=== PATIENT | female | born 1980 | race Caucasian/White ===

== ENCOUNTER 2019-08-31 14:13 | Outpatient (CLI) | payer MEDICAID ==
--- NOTE | 2019-08-31 15:04 | MMO ---
Bilateral MAMMO Bilat Screen [facility]. CLINICAL HISTORY: Patient is 38 years old and is seen for screening. The patient has the following family history of breast cancer: mother, at age 37, ALSO, OVARIAN, UTERINE, CERVICAL. The patient has no personal history of cancer. VIEWS: The views performed were: bilateral craniocaudal with tomosynthesis and bilateral mediolateral oblique with tomosynthesis. FILMS COMPARED: The present examination has been compared to a prior imaging study performed at [facility] on 08/31/2019. This study has been interpreted with the assistance of computer-aided detection. MAMMOGRAM FINDINGS: The breasts are heterogeneously dense, which could obscure a lesion on mammography. Ultrasound of the palpable finding in thew left breast was shown to be a cyst. There are no suspicious masses, suspicious calcifications, or new areas of architectural distortion. IMPRESSION: THERE IS NO MAMMOGRAPHIC EVIDENCE OF MALIGNANCY. A ROUTINE FOLLOW-UP MAMMOGRAM AT AGE 40 IS RECOMMENDED. THE RESULTS OF THIS EXAM WERE SENT TO THE PATIENT. ACR BI-RADS Category 2 - Benign finding MAMMOGRAPHY NOTE: 1. A negative mammogram report should not delay a biopsy if a dominant of clinically suspicious mass is present. 2. Approximately 10% to 15% of breast cancers are not detected by mammography. 3. Adenosis and dense breasts may obscure an underlying neoplasm. Reported by: NASRIN ACOSTA MD Electonically Signed: [id number]
--- NOTE | 2019-08-31 15:25 | ULT ---
LEFT BREAST ULTRASOUND: 08/31/19 HISTORY: Palpable mass at the 11 o'clock position of the left breast. FINDINGS: Sonographic evaluation of the area of palpable concern at the 1 o'clock position of the left breast d emonstrates a septated cyst measuring 1.3 x 0.7 x 1 cm. The smallest cysts at the 1 o'clock and the 2 o'clock positions of the left breast. IMPRESSION: BIRADS 2: Benign Finding(s) Routine annual screening mammography (for women over age 40).
== END 2019-08-31 14:14 | disposition home or self-care (01) ==
LOC: BICMAMMO 14:13
PROVIDERS: ATTEND Physician Assistant
DX: N64.4 Mastodynia (principal)
CPT/HCPCS: 77063; 77066; 77067; G0279

== ENCOUNTER 2019-12-22 09:08 | Outpatient (CLI) | payer MEDICAID ==
--- NOTE | 2019-12-22 09:52 | MMO ---
Left Breast MAMMO Unilat Diag [facility]. CLINICAL HISTORY: Patient is 39 years old and is seen for diagnostic exam. The patient has the following family history of breast cancer: mother, at age 37, ALSO, OVARIAN, UTERINE, CERVICAL. The patient has no personal history of cancer. VIEWS: The views performed were: left craniocaudal with tomosynthesis; left mediolateral oblique with tomosynthesis; and left mediolateral with tomosynthesis. FILMS COMPARED: The present examination has been compared to prior imaging studies performed at [facility] on 08/31/2019 and 12/22/2019. This study has been interpreted with the assistance of computer-aided detection. MAMMOGRAM FINDINGS: The breast is heterogeneously dense, which could obscure a lesion on mammography. No mammographic or sonograhic abnormality is seen at the site of palpable concern in the left upper outer breast. Previously noted septated cyst is again seen on US. There are no suspicious masses, suspicious calcifications, or new areas of architectural distortion. IMPRESSION: THERE IS NO MAMMOGRAPHIC EVIDENCE OF MALIGNANCY. A ROUTINE FOLLOW-UP MAMMOGRAM IN 1 YEAR IS RECOMMENDED. THE RESULTS OF THIS EXAM WERE SENT TO THE PATIENT. ACR BI-RADS Category 2 - Benign finding MAMMOGRAPHY NOTE: 1. A negative mammogram report should not delay a biopsy if a dominant of clinically suspicious mass is present. 2. Approximately 10% to 15% of breast cancers are not detected by mammography. 3. Adenosis and dense breasts may obscure an underlying neoplasm. Reported by: NASRIN ACOSTA MD Electonically Signed: [id number]
--- NOTE | 2019-12-22 10:02 | ULT ---
LIMITED LEFT BREAST ULTRASOUND: HISTORY: Palpable abnormality of the 1 o'clock position of the left breast at the 1 o'clock position of the le ft breast 4 cm from the nipple. FINDINGS: Correlation is made with the mammogram of the same date. Sonographic evaluation of the region of palpable concern at the 1 o'clock position of the left breast , 4 cm from the nipple, demonstrates no abnormality. At the 1 o'clock position of the left breast, 1 cm from the nipple, is a septated cyst measuring abou t 1.6 x 1 x 1.2 cm which was also seen on the exam of 08/31/2019. IMPRESSION: BIRADS category 2 - benign findings. Return to annual mammographic screening. POS: OFF
== END 2019-12-22 09:09 | disposition home or self-care (01) ==
LOC: BICMAMMO 09:08
PROVIDERS: ATTEND Physician Assistant
DX: N63.20 Unspecified lump in the left breast, unspecified quadrant (principal)
CPT/HCPCS: G0279

== ENCOUNTER 2022-01-20 13:59 | Observation (INO) | payer OTHER ==
[2022-01-20 17:13] VITALS: BMI 20.4
[2022-01-20] MEDS ORDERED: Heparin 10,000 UNITS/ 10 ML VIAL SLOW IVP SCH (17:15)
[2022-01-20] MEDS ORDERED: Ondansetron PF 4 MG/2 ML Vial IVP PRN (17:15)
[2022-01-20] MEDS ORDERED: Heparin 25,000 units/D5W 500 ML IV SCH (17:15)
[2022-01-20] MEDS ORDERED: Ondansetron ODT 4 MG TAB SL PRN (17:15)
[2022-01-20] MEDS ORDERED: Acetaminophen 325 MG TAB PO PRN (17:39)
[2022-01-20 17:44] LABS: Troponin I 0.174 ng/mL (< 0.028)
[2022-01-20 18:26] LABS: Magnesium 1.9 mg/dL (1.6-2.6); Phosphorus 2.7 mg/dL (2.3-4.7)
[2022-01-20 18:56] LABS: SARS-CoV-2 NAA Rapid Test Not Detected (NotDetected)
[2022-01-20 20:48] LABS: Troponin I 0.143 ng/mL (< 0.028)
[2022-01-20] MEDS: Enoxaparin Sodium 60 MG/0.6 ML SYRINGE SC SCH ×2 (22:40→22:47)
[2022-01-21 04:49] LABS: #Basophils 0.1 thou/uL (0.0-0.2); #Eosinphils 0.4 thou/uL (0.0-0.7); #Lymphocytes 3.2 thou/uL (1.20-3.40); #Monocytes 0.5 thou/uL (0.11-0.59); %Eosinophils 5.3 % (0.0-10.0); %Lymphocytes 44.8 % (21.0-51.0); %Monocytes 6.7 % (0.0-10.0); %Neutrophils 42.2 % (42.0-75.0); Hemoglobin 13.9 g/dL (12.0-16.0); Mean Corpuscular HGB CONC 32.9 g/dL (32.0-36.0); Mean Corpuscular Hemoglobin 32.8 pg (27.0-31.0); Mean Corpuscular Volume 99.6 fl (78.0-98.0); Mean Platelet Volume 8.3 fL (7.4-10.4); Platelet Count 226 thou/uL (130-400); RBC Distribution Width 12.7 % (11.5-14.5); Red Blood Cell (RBC) Count 4.23 mill/uL (4.20-5.40); White Blood Cell (WBC) Count 7.2 thou/uL (4.8-10.8)
[2022-01-21] MEDS ORDERED: Levothyroxine Sodium 100 MCG TAB PO SCH ×2 (06:00)
[2022-01-21 06:08] LABS: Anion Gap 10 mmol/L (10-20); BUN (Urea Nitrogen) 9 mg/dL (7.0-18.7); Calc. Creatinine Clearance 78 mL/min (70-130); Calcium 8.9 mg/dL (7.8-10.44); Carbon Dioxide 20 mmol/L (22-29); Chloride 110 mmol/L (98-107); Estimated GFR 98; Glucose 87 mg/dL (70-105); Potassium 3.5 mmol/L (3.5-5.1); Sodium 136 mmol/L (136-145)
[2022-01-21] MEDS ORDERED: Non-Formulary Item 1 EACH (Quetiapine Fumarate [Seroquel] 400 MG Tablet) PO SCH (07:30)
[2022-01-21] MEDS ORDERED: Bupropion 150 MG XL TAB PO SCH ×2 (09:00)
[2022-01-21] MEDS ORDERED: Enoxaparin Sodium 60 MG/0.6 ML SYRINGE SC SCH ×2 (09:00)
[2022-01-21] MEDS ORDERED: Sodium Chloride 0.9% 1,000 ML IV SCH (09:30)
[2022-01-21 11:00] LABS: Troponin I 0.196 ng/mL (< 0.028)
[2022-01-21] MEDS ORDERED: Nicotine 7 MG PATCH TD SCH (16:00)
[2022-01-21 16:07] VITALS: BP 115/67; TEMP 98.3
[2022-01-22] MEDS ORDERED: Nicotine 21 MG PATCH TD SCH (09:00)
== END 2022-01-21 18:20 | disposition home or self-care (01) ==
LOC: 2SW 16:48
PROVIDERS: ADMIT Internal Medicine; ATTEND Internal Medicine
DX: I21.4 Non-ST elevation (NSTEMI) myocardial infarction (principal); R55 Syncope and collapse; E05.00 Thyrotoxicosis with diffuse goiter without thyrotoxic crisis or storm; E03.9 Hypothyroidism, unspecified; F20.9 Schizophrenia, unspecified; F31.9 Bipolar disorder, unspecified; F17.210 Nicotine dependence, cigarettes, uncomplicated; K08.9 Disorder of teeth and supporting structures, unspecified; Z79.890 Hormone replacement therapy; Z79.899 Other long term (current) drug therapy; Z88.1 Allergy status to other antibiotic agents; Z88.5 Allergy status to narcotic agent; Z88.8 Allergy status to other drugs, medicaments and biological substances; Z20.822 Contact with and (suspected) exposure to COVID-19
CPT/HCPCS: 36415; 80048; 83735; 84100; 84484; 85025; 90471; 90732; 93306; 96372; G0009; G0378; J1644; J1650; J7050

== ENCOUNTER 2022-04-03 20:35 | Observation (INO) | payer BC, MEDICAID ==
[2022-04-03] MEDS ORDERED: Ondansetron ODT 4 MG TAB SL PRN (23:30)
[2022-04-03] MEDS ORDERED: Acetaminophen 325 MG TAB PO PRN (23:30)
[2022-04-03] MEDS ORDERED: Ondansetron PF 4 MG/2 ML Vial IVP PRN (23:30)
[2022-04-04] MEDS ORDERED: Nitroglycerin 0.4 MG TAB (25 Tab Bottle) SL PRN (00:39)
[2022-04-04] MEDS ORDERED: Senokot S 8.6-50 MG TAB PO PRN (00:39)
[2022-04-04] MEDS ORDERED: Ipratropium/Albuterol 3 ML NEB NEB PRN (00:58)
[2022-04-04 01:00] LABS: Troponin I 0.221 ng/mL (< 0.028)
[2022-04-04] MEDS ORDERED: QUEtiapine 200 MG TAB PO SCH ×2 (01:15→21:00)
[2022-04-04 01:53] LABS: SARS-CoV-2 NAA Rapid Test Not Detected (NotDetected)
[2022-04-04 05:19] LABS: #Eosinphils 0.2 thou/uL (0.0-0.7); #Lymphocytes 4.2 thou/uL (1.20-3.40); #Monocytes 0.8 thou/uL (0.11-0.59); #Neutrophils 6.4 thou/uL (1.40-6.50); %Basophils 0.1 % (0.0-1.0); %Eosinophils 1.6 % (0.0-10.0); %Lymphocytes 36.4 % (21.0-51.0); %Monocytes 6.7 % (0.0-10.0); %Neutrophils 55.1 % (42.0-75.0); Hemoglobin 13.2 g/dL (12.0-16.0); Mean Corpuscular HGB CONC 34.2 g/dL (32.0-36.0); Mean Corpuscular Hemoglobin 33.7 pg (27.0-31.0); Mean Corpuscular Volume 98.5 fl (78.0-98.0); Mean Platelet Volume 8.2 fL (7.4-10.4); Platelet Count 221 10x3/uL (130-400); RBC Distribution Width 12.1 % (11.5-14.5); Red Blood Cell (RBC) Count 3.92 mill/uL (4.20-5.40); White Blood Cell (WBC) Count 11.6 10x3/uL (4.8-10.8)
[2022-04-04] MEDS: Nitroglycerin 2% Ointment 1 INCH/1 GM Packet TOP SCH ×2 (05:25→15:27)
[2022-04-04 05:39] LABS: Anion Gap 8 mmol/L (10-20); BUN (Urea Nitrogen) 13 mg/dL (7.0-18.7); Calc. Creatinine Clearance 78 mL/min (70-130); Calcium 8.8 mg/dL (7.8-10.44); Carbon Dioxide 24 mmol/L (22-29); Cardiac Risk 2.4 (Less than 4.5); Chloride 110 mmol/L (98-107); Cholesterol 115 mg/dl (< 200 Desired); Estimated GFR 99; Glucose 94 mg/dL (70-105); HDL Cholesterol 48 mg/dL (>60 Neg Risk); LDL Cholesterol, Calculated 56 mg/dL; Potassium 3.6 mmol/L (3.5-5.1); Sodium 138 mmol/L (136-145); Triglycerides 56 mg/dL (Less than 150)
[2022-04-04 05:57] LABS: Free T4 (Free Thyroxine) 0.82 ng/dL (0.70-1.48); Thyroid Stimulating Hormone 2.1421 uIU/mL (0.35-4.94)
[2022-04-04] MEDS ORDERED: Levothyroxine Sodium 88 MCG TAB PO SCH (06:00)
[2022-04-04 06:26] LABS: Troponin I 0.257 ng/mL (< 0.028)
[2022-04-04] MEDS ORDERED: predniSONE 20 MG TAB PO SCH (08:00)
[2022-04-04] MEDS ORDERED: ADENOSINE 60 MG/20 ML VIAL ONE (08:17)
[2022-04-04] MEDS ORDERED: Bupropion 150 MG XL TAB PO SCH (09:00)
[2022-04-04] MEDS ORDERED: Famotidine 20 MG TAB PO SCH (09:00)
[2022-04-04] MEDS ORDERED: Azithromycin 250 MG TAB PO SCH (09:00)
[2022-04-04] MEDS ORDERED: QUETIAPINE 200 MG PO SCH (09:00)
[2022-04-04 09:56] LABS: Critical Call Chem Troponin I RESULT DECREASING; Troponin I 0.201 ng/mL (< 0.028)
[2022-04-04 13:19] LABS: Bacteria/HPF None Seen HPF (None Seen); Bilirubin Negative (Negative); Blood, Urine Negative (Negative); Clarity Clear (Clear); Glucose, Urine (Dipstick) Normal (Negative); Ketone, Urine Negative (Negative); Leukocyte Negative Leu/uL (Negative); Nitrite Negative (Negative); Protein, Urine (Dipstick) 50 mg/dL (Neg-Trace); Specific Gravity, Urine 1.035 (1.002-1.036); WBC/HPF 0-3 HPF (0-3); pH, Urine 6.5 (5.0-9.0)
[2022-04-04 13:23] LABS: Amphetamine Not Detected (NotDetected); Barbiturates Screen Not Detected (NotDetected); Benzodiazepine Screen Not Detected (NotDetected); Cocaine Metabolite Screen Not Detected (NotDetected); Methadone Not Detected (NotDetected); Methamphetamine Not Detected (NotDetected); Opiate Screen Not Detected (NotDetected); Oxycodone Screen Not Detected (NotDetected); Phencyclidine (PCP) Not Detected (NotDetected); THC/Cannabinoid Screen Detected (NotDetected); Tricyclic Screen Detected (NotDetected)
[2022-04-04 15:54] VITALS: BP 109/63; TEMP 97.7
[2022-04-04] MEDS ORDERED: Atorvastatin Calcium 20 MG TAB PO SCH (21:00)
== END 2022-04-04 19:00 | disposition home or self-care (01) ==
LOC: 2SW 23:13
PROVIDERS: ADMIT Internal Medicine; ATTEND Internal Medicine
DX: R07.89 Other chest pain (principal); R77.8 Other specified abnormalities of plasma proteins; R20.2 Paresthesia of skin; D72.829 Elevated white blood cell count, unspecified; J06.9 Acute upper respiratory infection, unspecified; K21.9 Gastro-esophageal reflux disease without esophagitis; E89.0 Postprocedural hypothyroidism; F17.210 Nicotine dependence, cigarettes, uncomplicated; Z79.52 Long term (current) use of systemic steroids; Z79.890 Hormone replacement therapy; Z79.899 Other long term (current) drug therapy; Z88.1 Allergy status to other antibiotic agents; Z88.5 Allergy status to narcotic agent; Z88.8 Allergy status to other drugs, medicaments and biological substances; Z20.822 Contact with and (suspected) exposure to COVID-19
CPT/HCPCS: 36415; 78452; 80048; 80061; 80306; 81001; 84439; 84443; 85025; 93017; 94760; A9500; G0378; J0153; J7512; U0003; U0005